=== PATIENT | female | born 1995 | race Caucasian/White ===

== ENCOUNTER 2024-04-05 08:52 | Emergency (ER) | payer BC, SELFPAY ==
[2024-04-05 08:57] VITALS: BP 137/91
[2024-04-05 09:56] VITALS: BP 116/83
[2024-04-05 10:00] VITALS: BP 114/73; BMI 18.8
--- NOTE | 2024-04-05 10:21 | ED.GENMED ---
History of Present Illness
General
Chief Complaint: Abdominal Symptoms
Source: patient
Exam Limitations: none
Time Seen by Provider: 04/05/24 09:53
Nursing documentation reviewed up to this point in time: agreed with
History of Present Illness
History of Present Illness:
28-year-old female with past provide history of Tessy-Danlos syndrome, previous C. difficile, chronic pain syndrome presenting to the emergency department today with concerns of bloody and purulent diarrhea over the past 2 days feels very similar
to previous C. difficile now having worsening lower abdominal pain as well. Did have some type of IV antibiotic 1 week ago when she had a spinal stimulator placed by our pain management group. Patient has discussed this with her infectious disease
doctor the recommended coming to the ER for assessment.
Past History
Past History
ED Past Medical History: GERD, Psychiatric (Anxiety, depression) and Other (RSD, Tessy Danlos syndrome, Migraines, ReymaudsAnorexia)
ED Past Surgical History: Gynecological
Social History
Tobacco: Non-smoker
Personal: Single
Review of Systems
Review of Systems
Allergies reviewed?: Yes
All Other Systems: ROS reviewed and negative except as documented in HPI and ROS
Phy Exam
Physical Exam
Physical Exam:
GENERAL: Alert , in no apparent distress
EYE: pupils equal and reactive
NECK: Supple, no significant adenopathy.
ENT: o/p clr, mmm.
CARDIAC: Regular rate and rhythm .
LUNGS: Clear breath sounds bilaterally, no acute respiratory distress, no wheezes/rales/rhonchi
ABDOMEN: Tenderness palpation throughout the lower abdomen mainly to the left lower quadrant otherwise soft benign abdomen
NEUROLOGICAL: Alert and oriented, no focal neuro deficits
SKIN: Warm and dry, skin intact.
MUSCULOSKELETAL: No edema, well perfused.
PSYCH: Normal and appropriate interaction.
Course
Orders/Labs/Results
Orders:
Orders
04/05/24 10:11
0.9% Sodium Chloride 1000 ml [Nss] 1,000 ml IV BOLUS
Ondansetron Injectable [Zofran] 4 mg IV NOW STA
04/05/24 10:12
CT Abd/Pel (IV only)-DH only Urgent
Comment:
Reason For Exam: lower abd pain, cdiff hx
Test Result ONCE
04/05/24 10:32
Complete Blood Count/With Diff Urgent
Comprehensive Metabolic Panel Urgent
HCG, Serum Qualitative Screen Urgent
Urinalysis Reflex To Culture Urgent
Date Specimen was Collected: 04/05/24
Time Specimen was Collected: 10:20
CDIFF [C difficile Antigen & Toxins] Urgent
EMMA Source: Feces/Stool
Specimen Description:
Date Specimen was Collected: 04/05/24
Time Specimen was Collected: 10:28
Stool Culture Urgent
EMMA Source: Feces/Stool
Specimen Description:
Date Specimen was Collected: 04/05/24
Time Specimen was Collected: 10:29
04/05/24 14:10
Consult Infectious Disease [INFECTIOUS DISEASE CONSULT] Urgent
Consulting Provider: Katt Cortez
Was physician already notified: Yes
04/05/24 14:16
Ondansetron Injectable [Zofran] 4 mg IV NOW STA
04/05/24 15:07
C DIFF [C difficile Antigen & Toxins] Routine
EMMA Source: Feces/Stool
Specimen Description:
Comment: on stool
04/05/24 15:09
Add On - Microbiology Routine
Tests Added?: C diff on stool
04/05/24 15:10
C difficile Antigen & Toxins Routine
EMMA Source: ST
Specimen Description:
04/05/24 16:00
CefTRIAXone [Rocephin] 1,000 mg IV Q24H
MetroNIDAZOLE 500 MG/100 ML [Flagyl 500 mg] 100 ml IV Q8H
Sterile Water [Sterile Water For Injection] 10 ml IV Q24H
04/05/24 16:03
Consult Gastroenterology [GASTROINTESTINAL CONSULT] Routine
Consulting Provider: Sweetie Alvarado
Was physician already notified: Yes
Reason for consult: post infectious IBD? C diff
04/05/24 18:00
Vancomycin HCl [Firvanq] 500 mg PO Q6
Abnormal Lab Results
04/05/24
10:32
WBC 20.3 H 10^3/uL
(4.8-10.8)
MCH 31.4 H pg
(27.0-31.0)
Abs Immat Gran (auto) 0.1 H 10^3/uL
(0-0.05)
Absolute Neuts (auto) 16.1 H 10^3/uL
(1.4-6.5)
Absolute Monos (auto) 1.7 H 10^3/uL
(0.1-0.6)
Neutrophils % 79.5 H %
(42.2-75.2)
Lymphocytes % 10.9 L %
(20.5-51.1)
BUN 19 H mg/dl
(7-17)
Calcium 10.4 H mg/dl
(8.4-10.2)
Urine Ketones 1+ A
(Negative)
04/05/24 10:32
04/05/24 10:32
Vital Signs
Initial and Last Documented VS:
Initial Vital Signs
Temp Pulse Resp BP Pulse Ox
98.3 F 138 16 137/91 99
04/05/24 08:57 04/05/24 08:57 04/05/24 08:57 04/05/24 08:57 04/05/24 08:57
Last Documented Vital Signs
Temp Pulse Resp BP Pulse Ox
98.3 F 98 16 110/53 97
04/05/24 08:57 04/05/24 10:00 04/05/24 10:00 04/05/24 14:00 04/05/24 14:45
MDM/Problems Addressed
MDM/Problems Addressed:
28-year-old female presenting to the emergency department today with concerns of bloody purulent diarrhea over the past 2 days. On arrival here patient was tachycardic but this improved after receiving fluids. Patient does have tenderness to the
lower abdomen plan for CT scan for further assessment as well as stool cultures. Initial C. difficile negative but white count 20.[address] afeb[address] normal vital signs CT scan showing proctocolitis. Case discussed with infectious disease and like to see
the patient. Infectious disease saw the patient and recommends multiple antibiotics to see the patient as well as the patient.
*Critical Care Note
Total Time (30-74mins, 75-104mins- exclusive of procedures): Not Applicable
Update Note
Update Note:
Patient was initially admitted patient was then seen by GI had who had a discussion with the patient she ended up wanting to go home. Case was then discussed with infectious disease once again who claims that she should be on vancomycin oral 4
times daily and follow-up closely GI was aware of her going home are okay with this as well he was given very strict return precautions for any worsening. Stable throughout ER stay.
ED Attending Note
-
Portions of this chart may have been created with voice recognition software.� Occasional wrong word or��sound alike� substitutions may have occurred due to the inherent limitations of voice recognition software.
Discharge Plan
Departure
Patient Disposition: Home (Routine Discharge)
Date of Disposition: 04/05/24
Time of Disposition: 15:20
Admit to: Med/Surg
Admit to doctor: Debbie
Patient with high blood pressure during this ER visit?: No
Condition: Good
Covid-19: Not Applicable
Discharge Problem:
Proctocolitis
Instructions: Colitis (DC)
Prescriptions:
New
vancomycin 125 mg capsule
125 mg PO QID 14 Days Qty: 56 0RF
No Action
acetaminophen 325 mg Tablet
650 mg PO Q4HPRN PRN (Reason: mild pain) Qty: 0 0RF
vancomycin 125 mg Capsule
125 mg PO QID Qty: 0 0RF
Patient Comments:
04/05/24: filled 04/04/24, to take 1 capsule 4 times a day for 10 days
ondansetron [Zofran ODT] 8 mg Tablet,Disintegrating
8 mg PO Q8HPRN PRN (Reason: nausea)
ibuprofen 200 mg Tablet
400 mg PO Q6HPRN PRN (Reason: mild pain)
montelukast 10 mg Tablet
10 mg PO HS
metoprolol succinate 25 mg Tablet Extended Release 24 Hr
25 mg PO DAILY
azelastine 137 mcg (0.1 %) [place],Non-Aerosol
2 spray INTRANASAL TID
fluticasone propion-salmeterol [Advair HFA] 230-21 mcg/actuation Hfa Aerosol Inhaler
2 puff INHALATION R BID
famotidine 20 mg tablet
20 mg PO NOON
meclizine 25 mg tablet
25 mg PO BIDPRN PRN (Reason: vertigo)
albuterol sulfate 90 mcg/actuation HFA aerosol inhaler
2 puff inhalation R Q6HPRN PRN (Reason: sob)
Referrals:
Chandrika Ryan MD [Family Provider] -
Sweetie Alvarado DO [Active] - Follow up in 5-7 days
Katt Cortez MD [Active] - Follow up in 5-7 days
Activity Restrictions/Additional Instructions:
You came to the emergency department today with concerns of abdominal pain and diarrhea. This could be C. difficile. Please take vancomycin 4 times daily and follow-up closely with GI and infectious disease. Return yearly for any worsening, new
or concerning symptoms.
Interventions
Interventions:
*Risk Screen - Suicide Last Done: 04/05/24 09:05
*General Assessment Last Done: 04/05/24 09:05
*Neglect/Abuse Screening Last Done: 04/05/24 09:05
ED- Fall Risk Assessment Last Done: 04/05/24 10:00
*ED COVID-19 Vaccine History Last Done: 04/05/24 10:00
KX-Iknfqf-Tmamimbzxf Assessment Last Done: 04/05/24 10:00
Discharge Date and Time
Print Language: NICARAGUAN
[2024-04-05] MEDS: NSS 1000 IV (10:34)
[2024-04-05] MEDS: ZOFRAN 4 MG IV ×2 (10:35→14:19)
[2024-04-05 10:53] LABS: % Basophils 0.3 % (0-2); % Eosinophils 0.6 % (0-6); % Immature Granulocytes 0.4 % (0-0.5); % Lymphocytes 10.9 % (20.5-51.1); % Monocytes 8.3 % (1.7-9.3); % Neutrophils 79.5 % (42.2-75.2); Absolute Basophils 0.1 10^3/uL (0-0.2); Absolute Eosinophils 0.1 10^3/uL (0-0.7); Absolute Immature Granulocytes 0.1 10^3/uL (0-0.05); Absolute Lymphocytes 2.2 10^3/uL (1.2-3.4); Absolute Monocytes 1.7 10^3/uL (0.1-0.6); Absolute Neutrophils 16.1 10^3/uL (1.4-6.5); Hematocrit 40.9 % (37.0-47.0); Hemoglobin 13.7 g/dL (12.0-16.0); Mean Corp Hgb Conc. 33.5 g/dL (33.0-37.0); Mean Corpuscular Hgb 31.4 pg (27.0-31.0); Mean Corpuscular Volume 93.6 fL (81.0-99.0); Mean Platelet Volume 9.5 fL (7.4-10.4); Nucleated Red Blood Cells % 0 %; Platelet Count 354 10^3/uL (130-400); Red Blood Cell Count 4.37 10^6/uL (4.20-5.40); Red Cell Dist. Width 12.3 % (11.5-14.5); White Blood Cell Count 20.3 10^3/uL (4.8-10.8)
[2024-04-05 11:00] VITALS: BP 119/74
[2024-04-05 11:01] LABS: Urine Albumin Trace (Neg - Trace); Urine Bilirubin Negative (Negative); Urine Color Yellow; Urine Glucose Negative (Negative); Urine Ketone 1+ (Negative); Urine Leukocyte Negative (Negative); Urine Nitrite Negative (Negative); Urine Occult Blood Negative (Negative); Urine Urobilinogen Negative (Neg - 1+)
[2024-04-05 11:06] LABS: Urine Character Clear (Clear)
[2024-04-05 11:39] LABS: ALT (SGPT) 13 U/L (0-35); AST (SGOT) 23 U/L (14-36); Alkaline Phosphatase 51 U/L (38-126); Blood Urea Nitrogen 19 mg/dl (7-17); Calcium 10.4 mg/dl (8.4-10.2); Carbon Dioxide 27 mmol/L (22-30); Chloride 101 mmol/L (98-107); Estimated Creatinine Clearance 89 ml/min; Glucose 93 mg/dl (70-99); HCG, Serum Qualitative Screen Negative; Potassium 4.5 mmol/L (3.5-5.1); Sodium 137 mmol/L (135-145); Total Bilirubin 0.5 mg/dl (0.2-1.3); Total Protein 7.7 g/dl (6.3-8.2); eGFR > 60.00
[2024-04-05 12:00] VITALS: BP 131/71
[2024-04-05 14:00] VITALS: BP 110/53
--- NOTE | 2024-04-05 15:07 | CON.ID ---
Consultation
-
Date/Time Consultation Requested: 04/05/24 14:10
Date/Time Consultation Performed: 04/05/24 16:08
Requesting Provider: Juan SHORE
Performing Provider: Dr Cortez
Reason for Consultation: bloody diarrhea
Chief Complaint / Past History
Chief Complaint
increasing bloody diarrhea
History of Present Illness
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 Post delivery she underwent a fecal
transplant, unfortunately with relapse, after her second fecal transplant she had sustained resolution. She also describes herself as a very picky eater what I suspect is ARFID and has not yet seen a cone treater for this.
Her current episode began on tuesday when she had elective spinal stimulator placement for CRPS at a surgical center with Dr Carr, we anticipated the surgery and planned for her to get 1 gram of cefazolin and oral vancomycin 125 mg PO BID for 5
days as prophylaxis. Initially she was constipated post operatively then developed increasing abdominal pain and bloody diarrhea, we initially increased the oral vanc to QID yesterday and this morning I got a phone call that the pain was worse and
I recommended that she come to the ER. Since arriving in the ER she has had 1L of IVF and reporting that abdominal pain is improving. No fever or chills, BP stable. WBC 20, hgb 13.7, plt 354, L shift is noted, cr 0.8, c diff ag/toxin negative -
patient notes this was on a sample of 'pure blood' without stool,' stool culture in progress. ID is consulted for assistance with management.
Past History
Additional Past Medical History:
teresa danlos
complex regional pain syndrome
Past Surgical History: None
Allergy History:
cat dander Allergy (Verified 04/05/24 08:57)
Sneezing, headaches, Wheezing, runny nose, cough
dog dander Allergy (Verified 04/05/24 08:57)
Sneezing, headaches, Wheezing, runny nose, cough
grass pollen Allergy (Verified 04/05/24 08:57)
Sneezing, headaches, Wheezing, runny nose, cough
mold Allergy (Verified 04/05/24 08:57)
Sneezing, headaches, Wheezing, runny nose, cough
nut - unspecified Allergy (Verified 04/05/24 08:57)
Itching, local swelling of lips/mouth/cheeks
shellfish derived Allergy (Verified 04/05/24 08:57)
Itching, local swelling of lips/mouth/cheeks
tree and shrub pollen Allergy (Verified 04/05/24 08:57)
Sneezing, headaches, Wheezing, runny nose, cough
Medications Reviewed: Yes
Social History
Tobacco: Non-Smoker
Alcohol: None
Drug: None
Family History
Family History: Not Pertinent
Review of Systems
Review of Systems
General: Negative Fever or Chills
All systems: All other systems were reviewed and were negative
Vital Signs
Temp Pulse Resp BP Pulse Ox
98.3 F 98 16 110/53 96
04/05/24 08:57 04/05/24 10:00 04/05/24 10:00 04/05/24 14:00 04/05/24 14:30
Physical Exam
Physical Exam
Constitutional: No Acute Distress
Cardiovascular: Regular Rate and S1/S2; Negative Murmur or Rub
Pulmonary: Clear and Symmetric; Negative Wheezes, Rales or Rhonchi
Gastrointestinal: Soft, Non Tender, Non Distended and Normal Bowel Sounds
Skin: Warm and Dry; Negative Rash or Jaundice
Wound: Other (two surgical sites on the back evaluated - no erythema, warmth, swelling, dehiscence or drainage )
Psychological: Calm
Lab / Diagnostic Study Results
04/05/24 10:32
04/05/24 10:32
Abs Immat Gran (auto) 0.1 10^3/uL (0-0.05) H 04/05/24 10:32
Absolute Neuts (auto) 16.1 10^3/uL (1.4-6.5) H 04/05/24 10:32
Absolute Lymphs (auto) 2.2 10^3/uL (1.2-3.4) 04/05/24 10:32
Absolute Monos (auto) 1.7 10^3/uL (0.1-0.6) H 04/05/24 10:32
Absolute Basos (auto) 0.1 10^3/uL (0-0.2) 04/05/24 10:32
Immature Gran % 0.4 % (0-0.5) 04/05/24 10:32
Neutrophils % 79.5 % (42.2-75.2) H 04/05/24 10:32
Lymphocytes % 10.9 % (20.5-51.1) L 04/05/24 10:32
Monocytes % 8.3 % (1.7-9.3) 04/05/24 10:32
Eosinophils % 0.6 % (0-6) 04/05/24 10:32
Basophils % 0.3 % (0-2) 04/05/24 10:32
Microbiology Results
Micro:
04/05/24 10:32 C. difficile [facility] Antigen & Toxins - Final
Feces/Stool Negative for toxigenic C.difficile
04/05/24 10:32 Salmonella/Shigella Culture - Pending
Feces/Stool Campylobacter Culture - Pending
Shiga Toxin Test - Pending
Assessment / Plan
Proctosigmoiditis
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
ARFID
- initial C diff sample had no stool in it, blood only; suspect it may be falsely negative - I am resending, lab said they will accept it as an add on order; if negative then would plan to send C diff PCR to [facility]
- post infectious inflammatory bowel disease also possible - asked GI to assist with evaluation
- stool culture for Shigellosis etc sent - unusual but a possible cause
- has spinal restrictions which I am told will delay colonoscopy
- continue oral vanc to 125 mg PO QID for 10 days
- will follow stool culture
Requesting Dc. If worsening, she will need to represent to ER for further assessment and treatment.
Care Review
Plan reviewed with: Other (QUEENIE pruitt, AKMI Martinez - dispo)
--- NOTE | 2024-04-05 15:57 | CON.GI ---
Addendum entered and electronically signed by Sweetie Alvarado DO 04/05/24 17:13:
I saw and examined the patient.
The DISPLAY SPECIALIST or PA's note was reviewed and I agree with the note.
Comment:
Kita Valenzuela is a 28-year-old female with past medical history of recurrent C. difficile status post fecal transplant x 2 who presents with persistent blood and mucus in her stool after taking antibiotics for recent procedure, imaging showed
circumferential long segment wall thickening involving the distal descending colon, sigmoid colon and rectum likely representing proctocolitis, report mentions this is likely sequela of known C. difficile. Interestingly, patient states her C.
difficile always presents with bloody mucus, she never has actual diarrhea. She follows with infectious disease, she received antibiotics prior to her recent's procedure and was placed on vancomycin, after she started developing symptoms the dose
was increased, but due to progressively worsening symptoms she was urged to come in for evaluation. Labs notable for leukocytosis, white count of 20,000, hemoglobin 13.7, MCV 93.6. C. difficile
Recurrent C.diff s/p FMT x2 with recurrent blood/mucus in stool found to have proctocolitis on imaging with leukocytosis of 20K, concerning for possible infectious vs. inflammatory colitis.
-no prior Colonoscopy or Flex Sig
-atypical presentations for C.diff, but reports consistently presents this way
-c.diff negative, but only blood and no stool in sample
-ID following, recc. Vanc 125 mg QID
-check fecal calprotectin
-check CRP
-discussed performing inpatient evaluation-- colonoscopy vs. flex sig, patient has a baby at home, feels significantly improved since arrival, wishes to perform as an outpatient (follows with Dr. Proctor). Will arrange for outpatient procedure next
week
-discussed that if she has worsening of symptoms, she must return to the ER immediately, she expressed understanding.
Original Note:
Consultation
-
Date/Time Consultation Requested: 04/05/24 1530
Date/Time Consultation Performed: 04/05/24 1600
Requesting Provider: Katt Cortez MD
Performing Provider: BORA Wells, Chinyere Zimmer MD
Reason for Consultation: abdominal pain, protocolitis
Medical History
Chief Complaint / HPI
Chief Complaint: abdominal pain, rectal bleeding
History of Present Illness:
Pt is a 28yo with hx GERD, anxiety, palpitations, PVC's, asthma, complex region pain syndrome ( hx prior injection and medication trial last over a year ago with Naltrexone and recent spinal stimulator placement) and prior hx c diff with
in 2022. She relates hx constipation in her teen years. She was on prolonged course of c-diff then had fecal transplant. She went last week for spinal stimulator 03/29 with antibiotic during surgery after review with ID. She then began with mucous
with blood in stools. She then started Vanco on Tuesday with noted increased abdominal pain with bleeding today. On ER evaluation she was noted with WBC 20,[address] notable circumferential long segment wall thickening involving the distal
descending colon, sigmoid colon and rectum likely representing proctocolitis likely sequelae of known C. difficile.
She currently admits to change in stools and hx prior constipation years ago. She recently has had good bowel function for last years with daily stool without blood. She has chronic GERD with use of gaviscon, pepto and occasional ZofranShe
denies issues with odynophagia, Dysphagia, vomiting, or black stools. No prior colonoscopy. EGD stable 2018. Pt denies any recent narcotic use.
2.4 cm right ovarian cyst/follicle. There is trace free fluid in the pelvis, likely physiologic.
Past Medical History
Past Medical History: Asthma, GERD, Psychiatric (anxiety) and Other (palpitations, PVC's, eating disorder, chest pain, RSD, complex regional pain syndrome with recent spinal stimulator and prior injections, c-diff during with prolonged
vanco course then fecal transplant, migraines)
Past Surgical History: Tonsilectomy and Other (prior miscarriage, D+C, spinal stimulator )
Social History
Tobacco: Non-Smoker
Alcohol: Occasional
Drug: None
Living: With Family
Employment: Employed
Family History
Family History: Other (sister with IBS, colon polyps no family hx crohns disease or UC)
Allergies / Home Medications
Allergy/AdvReac Type Severity Reaction Status Date / Time
cat dander Allergy Sneezing, Verified 04/05/24 08:57
headaches,
Wheezing,
runny
nose, cough
dog dander Allergy Sneezing, Verified 04/05/24 08:57
headaches,
Wheezing,
runny
nose, cough
grass pollen Allergy Sneezing, Verified 04/05/24 08:57
headaches,
Wheezing,
runny
nose, cough
mold Allergy Sneezing, Verified 04/05/24 08:57
headaches,
Wheezing,
runny
nose, cough
nut - unspecified Allergy Itching, Verified 04/05/24 08:57
local
swelling
of
lips/mouth/cheeks
shellfish derived Allergy Itching, Verified 04/05/24 08:57
local
swelling
of
lips/mouth/cheeks
tree and shrub pollen Allergy Sneezing, Verified 04/05/24 08:57
headaches,
Wheezing,
runny
nose, cough
�Medication �Instructions �Recorded
acetaminophen 325 mg tablet 650 mg (2 x 325 mg) PO Q4HPRN PRN 03/25/23
mild pain #0 tabs
albuterol sulfate 90 mcg/actuation 2 puff inhalation R BID #0 grams 03/25/23
aerosol inhaler
budesonide-formoterol HFA 80 2 puff inhalation R BID #0 grams 03/25/23
mcg-4.5 mcg/actuation aerosol
inhaler (Symbicort)
famotidine 20 mg tablet 20 mg PO DAILY #0 tabs 03/25/23
ibuprofen 600 mg tablet 600 mg PO Q6HPRN PRN moderate 03/25/23
pain/cramps #45 tabs
levothyroxine 50 mcg tablet 50 mcg PO DAILY@0700 #0 tabs 03/25/23
meclizine 25 mg tablet 25 mg PO Q8HPRN PRN vertigo #0 tabs 03/25/23
vitamin with calcium 1 tab PO DAILY #0 tabs 03/25/23
no.72-iron 27 mg-folic acid 1 mg
tablet (WesTab Plus)
sennosides 8.6 mg-docusate sodium 1 tab PO DAILYPRN PRN constipation 03/25/23
50 mg tablet (Senna Plus) #0 tabs
vancomycin 125 mg capsule 125 mg PO QID #0 caps 03/25/23
Review of Systems
-
History Source: Patient and Family
Constitutional: Reports No Symptoms
EENT: Reports No Symptoms
Respiratory: Reports No Symptoms
Cardiac: Reports Palpitations (with anxiety )
Abdomen/GI: Reports Abdominal Pain, Diarrhea, Constipated and Bloody Stools
: Reports No Symptoms
Musculoskeletal: Reports No Symptoms
Skin: Reports No Symptoms
Neurological: Reports Weakness
Endocrine: Reports No Symptoms
Hematologic/Lymphatic: Reports Bleeding
Vital Signs
Temp Pulse Resp BP Pulse Ox
98.3 F 98 16 110/53 97
04/05/24 08:57 04/05/24 10:00 04/05/24 10:00 04/05/24 14:00 04/05/24 14:45
Physical Exam
Exam
General: Well Developed, Well Nourished and No Apparent Distress
HEENT: Normocephalic and Anicteric
Respiratory: Clear
Cardiac: Regular Rhythm
GI: Soft, Non Distended and Tender (minimal lower tenderness )
Musculoskeletal: No Clubbing and No Cyanosis
Skin: Warm, Dry and Other (back inicision with intact dressing )
Neuro: Awake, Alert and AO x 3
Psych: Calm and Other (tearful about need for possible admission)
Results
WBC 20.3 10^3/uL (4.8-10.8) H 04/05/24 10:32
Hgb 13.7 g/dL (12.0-16.0) 04/05/24 10:32
Hct 40.9 % (37.0-47.0) 04/05/24 10:32
MCV 93.6 fL (81.0-99.0) 04/05/24 10:32
Plt Count 354 10^3/uL (130-400) 04/05/24 10:32
Absolute Neuts (auto) 16.1 10^3/uL (1.4-6.5) H 04/05/24 10:32
Sodium 137 mmol/L (135-145) 04/05/24 10:32
Potassium 4.5 mmol/L (3.5-5.1) 04/05/24 10:32
Chloride 101 mmol/L (98-107) 04/05/24 10:32
Carbon Dioxide 27 mmol/L (22-30) 04/05/24 10:32
BUN 19 mg/dl (7-17) H 04/05/24 10:32
Creatinine 0.8 mg/dL (0.6-1.0) 04/05/24 10:32
Calcium 10.4 mg/dl (8.4-10.2) H 04/05/24 10:32
Total Bilirubin 0.5 mg/dl (0.2-1.3) 04/05/24 10:32
AST 23 U/L (14-36) 04/05/24 10:32
ALT 13 U/L (0-35) 04/05/24 10:32
Alkaline Phosphatase 51 U/L (38-126) 04/05/24 10:32
Diagnostic Image Results:
04/05/24- CT Abd/Pel (IV only)-DH only
There is circumferential long segment wall thickening involving the distal descending colon, sigmoid colon and rectum likely representing proctocolitis likely sequelae of known C. difficile.
2.4 cm right ovarian cyst/follicle. There is trace free fluid in the pelvis, likely physiologic.
Prior GI Procedures:
EGD: 2019 [facility] - Normal examined duodenum. Biopsied.
- Erythematous mucosa in the stomach. Biopsied.
- Bilious gastric fluid.
- Z-line regular, 39 cm from the incisors.
- No gross lesions in esophagus.
bx neg celiac, h pylori, inactive gastritis
Colonoscopy: none
Assessment / Plan
-
Pt is a 28yo with hx GERD, anxiety, palpitations, PVC's, asthma, complex region pain syndrome ( hx prior injection and medication trial last over a year ago with Naltrexone and recent spinal stimulator placement) and prior hx c diff with
in 2022. She relates hx constipation in her teen years. She was on prolonged course of c-diff then had fecal transplant. She went last week for spinal stimulator 03/29 with antibiotic during surgery after review with ID. She then began with mucous
with blood in stools. She then started Vanco on Tuesday with noted increased abdominal pain with bleeding today. On ER evaluation she was noted with WBC 20,[address] notable circumferential long segment wall thickening involving the distal
descending colon, sigmoid colon and rectum likely representing proctocolitis likely sequelae of known C. difficile.
-change in stool pattern with rectal bleeding/mucous
-CT with concern for long segment wall thickening involving the distal descending colon, sigmoid colon and rectum likely representing proctocolitis
-hx recurrent c-diff with 2022 requiring stool transplant
-leukocytosis
-spinal stimulator placement 03/29 for complex region pain syndrome
-hx constipation
-GERD
-anxiety
-palpitations
-asthma
-family hx colon polyps in sister and IBS
PLAN:
etiology of descending/sigmoid/rectal proctocolitis related recurrent c-diff, underlying IBD vs other
reviewed case with Dr. Cortez pt wishes for discharge
I discussed with her she will need flex vs colon to rule out underlying IBD with hx constipation, recurrent c-diff and now noted proctosigmoid colitis -- she wishes to go home to care for child but also hesitant for procedure with recent stimulator
with restrictions with movement for next few weeks
Ok per ID for discharge antibiotics reviewed with ER
pt instructed if worsening pain, fever etc to return to ER and call GI next week with update
I sent message to Dr. Kidd- know GI for follow up-- office visit vs just set up procedure
family updated at bedside
-
-
Thank you for consultation and allowing me to participate in the patient's care. Please call the cardiac catheterization technologist GI physician during the after hours with any questions or concerns.
[2024-04-05 17:25] LABS: Erythrocyte Sed Rate 14 mm/hour (0-20)
[2024-04-05 18:23] LABS: C-Reactive Protein < 5.00 mg/L (0.0-10.00)
== END 2024-04-05 16:27 | disposition home or self-care (01) ==
LOC: EMR 08:52
PROVIDERS: Physician Assistant; CONSULT PHYSICIAN Internal Medicine; CONSULT PHYSICIAN Student in an Organized Health Care Education/Training Program; EMERGENCY PHYSICIAN Emergency Medicine; FAMILY PHYSICIAN Family Medicine
DX: K51.219 Ulcerative (chronic) proctitis with unspecified complications (principal)
CPT/HCPCS: 99285; 96374; 96361; 96376; 74177; 80053; 81003; 84703; 85025; 85652; 86140; 87045; 87046; 87324; 87427; 87449; Q9967

== ENCOUNTER → 2024-05-17 06:35 | Day surgery (SDC) | payer BC, SELFPAY | LOC: GI 06:35 | PROVIDERS: ATTENDING PHYSICIAN Internal Medicine Gastroenterology | DX: R93.3 Abnormal findings on diagnostic imaging of other parts of digestive tract (principal) | CPT/HCPCS: 45380; 88305 ==

== ENCOUNTER → 2025-06-21 07:23 | Outpatient (REF) | payer OTHER, SELFPAY | LOC: RAD 07:23 | PROVIDERS: ATTENDING PHYSICIAN Physician Assistant Surgical; FAMILY PHYSICIAN Family Medicine | DX: M54.14 Radiculopathy, thoracic region (principal); M54.16 Radiculopathy, lumbar region | CPT/HCPCS: 72072; 72120 ==